=== PATIENT | female | born 2005 | race Caucasian/White ===

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

== ENCOUNTER 2024-09-08 18:40 | Emergency (ER) | payer OTHER ==
[~2024-09-08] VITALS: Ht 160 cm; Wt 79.4 kg
[2024-09-08] MEDS ORDERED: METHOCARBAMOL 500 MG TAB PO ONE (22:10)
[2024-09-08] MEDS ORDERED: NAPROXEN250 MG PO (22:12)
[2024-09-08] MEDS ORDERED: METHOCARBAMOL500 M1 PO (22:12)
== END 2024-09-08 22:27 | disposition home or self-care (01) ==
LOC: ED 18:40
DX: S16.1XXA Strain of muscle, fascia and tendon at neck level, initial encounter (principal); R51.9 Headache, unspecified; K21.9 Gastro-esophageal reflux disease without esophagitis; V89.2XXA Person injured in unspecified motor-vehicle accident, traffic, initial encounter; Y93.89 Activity, other specified; Y92.488 Other paved roadways as the place of occurrence of the external cause; Y99.8 Other external cause status